=== PATIENT | male | born 1995 | race Hispanic/Latino ===

== ENCOUNTER 2021-03-17 11:34 | Emergency (ER) | payer SELFPAY ==
[2021-03-17] MEDS ORDERED: IBUPROFEN 400 MG TAB ONE (14:51)
--- NOTE | 2021-03-17 15:00 | RAD REPORT ---
EXAM DESCRIPTION: RAD - C Spine Ap/Lat - 03/17/2021 2:53 pm CLINICAL HISTORY: neck pain Radiculopathy COMPARISON: No comparisons FINDINGS: Cervical bodies are normal in height and alignment.No fracture or acute bony process seen. Disc thinning with small posterior osteophytes noted at C4-5 and C5-6. No prevertebral soft tissue thickening or other suspicious soft tissue finding. The odontoid is normal and the lateral masses are symmetric. IMPRESSION: Mild midcervical spondylosis.
--- NOTE | 2021-03-17 18:12 | EDPHYS ---
Physician Documentation [facility] Name: Geronimo Akhtar Age: 25 yrs Sex: Male : 1995 Arrival Date: 03/17/2021 Time: 11:40 Bed 28 Private MD: ED Physician Jose Lau HPI: 03/17 14:09 This 25 yrs old Male presents to ER via Ambulatory with complaints of Shoulder jmm Pain, Neck pain. 14:09 Onset: The symptoms/episode began/occurred gradually, 2 week(s) ago. Modifying factors: jmm the symptoms are alleviated by nothing. The symptoms are aggravated by movement. Associated signs and symptoms: Pertinent positives: neck pain. 25-year-old male with no chronic medical conditions presents emergency department with complaints of right upper back pain which radiates down his right arm. Patient states symptoms began approximately 2 weeks ago. Patient denies known injury. Patient denies chest pain. Patient does perform strenuous activity at work.. Historical: - Allergies: 12:03 No Known Allergies; iw - Home Meds: 12:03 None [Active]; iw - PMHx: 12:03 None; iw - PSHx: 12:03 None; iw - Immunization history:: Client reports having NOT received the Covid vaccine. - Social history:: Smoking status: Patient reports the use of cigarette tobacco products, denies chronic smoking, but will smoke occasionally. ROS: 14:09 Constitutional: Negative for fever, chills, and weight loss, Cardiovascular: Negative jmm for chest pain, palpitations, and edema, Respiratory: Negative for shortness of breath, cough, wheezing, and pleuritic chest pain. 14:09 Back: Positive for pain with movement. 14:09 MS/extremity: Positive for pain. 14:09 All other systems are negative. Exam: 14:09 Constitutional: This is a well developed, well nourished patient who is awake, alert, jmm and in no acute distress. Head/Face: atraumatic. Eyes: EOMI, no conjunctival erythema appreciated ENT: Moist Mucus Membranes Neck: Trachea midline, Supple Chest/axilla: Normal chest wall appearance and motion. Cardiovascular: Regular rate and rhythm. No edema appreciated Respiratory: Normal respirations, no respiratory distress appreciated Abdomen/GI: Non distended, soft Skin: General appearance color normal MS/ Extremity: Moves all extremities, no obvious deformities appreciated, no edema noted to the lower extremities Neuro: Awake and alert, normal gait Psych: Behavior is normal, Mood is normal, Patient is cooperative and pleasant 14:09 Back: Right trapezius pain on palpation, pain is elicited on rotation of the neck as well. 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 Vital Signs: 12:02 BP 130 / 69; Pulse 60; Resp 16 S; Temp 97.4; Pulse Ox 100% on R/A; Weight 104.33 kg; iw Height 5 ft. 9 in. (175.26 cm); Pain 7/10; 12:02 Body Mass Index 33.97 (104.33 kg, 175.26 cm) iw MDM: 14:09 Patient medically screened. [facility] 15:13 Data reviewed: vital signs, nurses notes. Counseling: I had a detailed discussion with mariangel the patient and/or guardian regarding: the historical points, exam findings, and any diagnostic results supporting the discharge/admit diagnosis, radiology results, the need for outpatient follow up, to return to the emergency department if symptoms worsen or persist or if there are any questions or concerns that arise at home. 15:13 ED course: . [facility] 15:20 ED course: I do not suspect cord compression, pulmonary embolism, ACS at this time. jmm Pain is relieved in the ED. This is most likely a muscle spasm versus cervical radiculopathy. Patient is advised to follow-up with orthopedics for further evaluation. Patient is otherwise given strict return precautions. Patient understood and agrees plan of care.. 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 rn Disposition Summary: 03/17/21 15:22 Discharge Ordered Location: Home [facility] Condition: Stable jm Diagnosis - Muscle spasm of back jmm - Radiculopathy, cervical region jmm Followup: [facility] - With: Private Physician - When: 2 - 3 days - Reason: Recheck today's complaints, Continuance of care, Re-evaluation by your physician Discharge Instructions: - Discharge Summary Sheet jmm - Cervical Radiculopathy jmm - Muscle Cramps and Spasms jmm Forms: - Work release form jmm - Medication Reconciliation Form jmm - Thank You Letter jmm - Antibiotic Education jmm - Prescription Opioid Use jm Prescriptions: - Zanaflex 4 mg Oral Tablet - take 1 tablet by ORAL route every 8 hours As needed; 20 tablet; Refills: 0, jmm Product Selection Permitted - Medrol ([place]) 4 mg Oral Tablets, Dose Pack - take 1 tablet by ORAL route as directed - follow package instructions; 1 jmm packet; Refills: 0, Product Selection Permitted Signatures: Dispatcher [employer] Rick Kamara PA PA jmm Williams, Irene, RN Jose Burroughs MD MD rn Smirch, Shelby, RN RN ss
--- NOTE | 2021-03-17 18:12 | ER ---
Nurse's Notes [facility] Name: Geronimo Akhtar Age: 25 yrs Sex: Male : 1995 Arrival Date: 03/17/2021 Time: 11:40 Bed 28 Private MD: Diagnosis: Muscle spasm of back;Radiculopathy, cervical region Presentation: 03/17 12:02 Chief complaint: Patient states: is having pain on right side of neck down int right iw shoulder and sometimes he has a hard time picking up his right hand X 2 weeks. Coronavirus screen: At this time, the client does not indicate any symptoms associated with coronavirus-19. Ebola Screen: Patient negative for fever greater than or equal to 101.5 degrees Fahrenheit, and additional compatible Ebola Virus Disease symptoms Patient denies exposure to infectious person. Patient denies travel to an Ebola-affected area in the 21 days before illness onset. No symptoms or risks identified at this time. Initial Sepsis Screen: Does the patient meet any 2 criteria? No. Patient's initial sepsis screen is negative. Does the patient have a suspected source of infection? No. Patient's initial sepsis screen is negative. Risk Assessment: Do you want to hurt yourself or someone else? Patient reports no desire to harm self or others. Onset of symptoms was March 03, 2021. 12:02 Method Of Arrival: Ambulatory iw 12:02 Acuity: BRIDGET 4 iw Historical: - Allergies: 12:03 No Known Allergies; iw - Home Meds: 12:03 None [Active]; iw - PMHx: 12:03 None; iw - PSHx: 12:03 None; iw - Immunization history:: Client reports having NOT received the Covid vaccine. - Social history:: Smoking status: Patient reports the use of cigarette tobacco products, denies chronic smoking, but will smoke occasionally. Screenin:01 Abuse screen: Denies threats or abuse. Denies injuries from another. Nutritional ss screening: No deficits noted. Tuberculosis screening: Never had TB. Fall Risk None identified. Assessment: 14:15 General: Appears in no apparent distress. comfortable, Behavior is calm, cooperative, ss appropriate for age. Pain: Complains of pain in R side of neck Pain radiates to right arm Pain currently is 7 out of 10 on a pain scale. Quality of pain is described as pinching, Pain began 2 weeks ago Is intermittent, Aggravated by increased activity, ROM of neck. Neuro: Level of Consciousness is awake, alert, obeys commands, Oriented to person, place, time, situation, Geology Scientist are equal bilaterally Moves all extremities. Full function Gait is steady, Speech is normal, Facial symmetry appears normal, Pupils are PERRLA. Neuro: Denies blurred vision dizziness, paresthesias numbness. Cardiovascular: Capillary refill < 3 seconds is brisk in bilateral fingers Patient's skin is warm and dry. Respiratory: Airway is patent Trachea midline Respiratory effort is even, unlabored, Respiratory pattern is regular, symmetrical. EENT: Nares are clear Throat is clear. Derm: Skin is pink, warm \T\ dry. normal. 15:31 Reassessment: Patient appears in no apparent distress at this time. Patient and/or ss family updated on plan of care and expected duration. Pain level reassessed. Patient is alert, oriented x 3, equal unlabored respirations, skin warm/dry/pink. Vital Signs: 12:02 BP 130 / 69; Pulse 60; Resp 16 S; Temp 97.4; Pulse Ox 100% on R/A; Weight 104.33 kg; iw Height 5 ft. 9 in. (175.26 cm); Pain 7/10; 12:02 Body Mass Index 33.97 (104.33 kg, 175.26 cm) iw ED Course: 11:40 Patient arrived in ED. mr 12:03 Triage completed. iw 12:04 Arm band placed on. iw 13:54 Rick Britt PA is PHCP. [facility] 13:54 Jose Lau MD is Attending Physician. m 14:01 Cheyenne Parker, RAÚL is Primary Nurse. ss 14:01 Patient has correct armband on for positive identification. Bed in low position. Call ss light in reach. 14:53 C Spine Ap/Lat XRAY In Process Unspecified. EDMS 15:31 No provider procedures requiring assistance completed. Patient did not have IV access ss during this emergency room visit. Administered Medications: 14:31 Not Given (PT refused as he drove himselff): Valium (diazepam) 5 mg PO once ss 14:31 Drug: Ibuprofen 800 mg Route: PO; ss 15:30 Follow up: Response: No adverse reaction; Pain is decreased ss Outcome: 15:22 Discharge ordered by MD. august 15:31 Discharged to home ambulatory. ss 15:31 Condition: good 15:31 Discharge instructions given to patient, family, Instructed on discharge instructions, follow up and referral plans. Demonstrated understanding of instructions, follow-up care, medications, Prescriptions given X 2. 15:31 Patient left the ED. ss Signatures: Dispatcher [employer] EDMS Rick Britt PA PA jmm Rivera, Mary mr Hillary Ramachandran RN RN iw Smirch, Shelby, RN RN ss Corrections: (The following items were deleted from the chart) 12:04 12:02 Resp 16bpm; Spontaneous; Pulse Ox 100% RA; Temp 97.4F; 104.33 kg; Height 5 ft. 9 iw in.; BMI: 33.9; Pain 7/10; iw
[2021-03-18 23:00] VITALS: BP 130/69; TEMP 97.4; O2SAT 100
== END 2021-03-17 15:31 | disposition home or self-care (01) ==
LOC: ER 11:34
DX: M54.12 Radiculopathy, cervical region (principal); M62.830 Muscle spasm of back
CPT/HCPCS: 72040